=== PATIENT | male | born 1970 | race African-American/Black ===

== ENCOUNTER 2017-08-29 11:59 | Emergency (ER) | payer MEDICAID ==
[~2017-08-29] VITALS: Ht 177.8 cm; Wt 91.0 kg
[2017-08-29] MEDS ORDERED: INSULIN (12:04)
[2017-08-29] MEDS ORDERED: SODIUM CHLORIDE 0.9% 1,000 ML IV ONE (14:39)
[2017-08-29 15:14] LABS: CHLORIDE 103 mEq/L (98-107)
[2017-08-29 15:15] LABS: BASOPHILS % 0.4 % (0.0-2.0); EOSINOPHILS % 4.8 % (0.0-5.0); HEMATOCRIT. 39.8 % (42.0-52.0); HEMOGLOBIN. 13.3 g/dL (14.0-18.0); LYMPHOCYTES % 38.8 % (20.0-50.0); MEAN CORPUSCULAR HEMOGLOBIN 27.3 pg (28.0-32.0); MEAN CORPUSCULAR VOLUME 81.8 fL (80.0-94.0); MEAN PLATELET VOLUME 7.7 fl (7.4-10.4); PLATELET 256 x1000/uL (130-400); RED BLOOD CELL COUNT 4.86 mill/uL (4.7-6.1); RED CELL DISTRIBUTION WIDTH 14.7 % (11.6-14.6)
[2017-08-29 15:16] LABS: PROTHROMBIN TIME 10.1 sec (9.4-11.6)
[2017-08-29 15:18] LABS: CARBON DIOXIDE 26 mEq/L (21-32)
[2017-08-29 16:39] LABS: CLARITY URINE CLEAR (CLEAR); COLOR URINE YELLOW (YELLOW); GLUCOSE URINE 3+ (NEGATIVE); KETONES URINE NEGATIVE (NEGATIVE); LEUKOCYTE ESTERASE URINE NEGATIVE (NEGATIVE); NITRITE URINE NEGATIVE (NEGATIVE); OCCULT BLOOD URINE NEGATIVE (NEGATIVE); PH URINE 5.5 (4.5-8.0); PROTEIN URINE NEGATIVE (NEGATIVE); SPECIFIC GRAVITY URINE 1.029 (1.005-1.030); UROBILINOGEN URINE 0.2 E.U./dL (0.2-1.0)
[2017-08-29 16:50] LABS: *AMPHETAMINES SCREEN URINE NEGATIVE (NEGATIVE); *BARBITURATES SCREEN URINE NEGATIVE (NEGATIVE); *BENZODIAZEPINES SCREEN URINE NEGATIVE (NEGATIVE); *COCAINE SCREEN URINE NEGATIVE (NEGATIVE); CANNABINOID URINE SCREEN NEGATIVE (NEGATIVE); METHADONE URINE SCREEN NEGATIVE (NEGATIVE); OPIATES URINE SCREEN NEGATIVE (NEGATIVE); PHENCYCLIDINE URINE SCREEN NEGATIVE (NEGATIVE)
[2017-08-29] MEDS ORDERED: INSULIN REGULAR (HUMULIN R) 300UNITS/3ML SUBCUT ONE (17:45)
[2017-08-29 19:34] VITALS: BP 145/92
== END 2017-08-29 20:35 | disposition home or self-care (01) ==
LOC: ER 12:11
DX: R53.1 Weakness (principal); H53.8 Other visual disturbances; R20.0 Anesthesia of skin; E11.9 Type 2 diabetes mellitus without complications; G62.9 Polyneuropathy, unspecified; F11.10 Opioid abuse, uncomplicated
CPT/HCPCS: 36415; 70450; 80053; 80305; 81001; 82962; 83690; 85025; 85610; 96360; 96372; 99285; J1815; J7030; Z7610

== ENCOUNTER 2017-09-11 19:46 | Emergency (ER) | payer MEDICAID ==
[~2017-09-11] VITALS: Ht 185.4 cm; Wt 113.0 kg
[~2017-09-11 19:46] MED LIST: INSULIN
[2017-09-11 20:04] VITALS: BP 127/71
[2017-09-11] MEDS ORDERED: DIPHENHYDRAMINE 25MG CAPSULE PO ONE (21:15)
[2017-09-11] MEDS ORDERED: PREDNISONE 20MG TABLET PO ONE (21:15)
== END 2017-09-11 21:44 | disposition home or self-care (01) ==
LOC: ER 20:18
DX: T78.40XA Allergy, unspecified, initial encounter (principal); L30.9 Dermatitis, unspecified; G62.9 Polyneuropathy, unspecified; E11.9 Type 2 diabetes mellitus without complications; Z79.4 Long term (current) use of insulin; Z87.828 Personal history of other (healed) physical injury and trauma; X58.XXXA Exposure to other specified factors, initial encounter
CPT/HCPCS: 99283; J7512; Q0163